=== PATIENT | female | born 1950 | race Two or more races ===

== ENCOUNTER 2021-08-22 14:07 | Emergency (ER) | payer OTHER ==
[~2021-08-22] VITALS: Ht 167.6 cm; Wt 62.1 kg
[2021-08-22] MEDS ORDERED: NORVASC2.5 M1 (14:38)
[2021-08-22] MEDS ORDERED: OMEPRAZOLE40 MG PO (20:08)
[2021-08-22] MEDS ORDERED: FLAGYL500MG PO (20:08)
[2021-08-22] MEDS ORDERED: CIPRO500 MG PO (20:08)
[2021-08-22] MEDS ORDERED: LEVSIN/SL0.125 MG SL (20:08)
== END 2021-08-22 20:54 | disposition home or self-care (01) ==
LOC: ER 14:07
DX: K57.32 Diverticulitis of large intestine without perforation or abscess without bleeding (principal); R10.32 Left lower quadrant pain; Z03.818 Encounter for observation for suspected exposure to other biological agents ruled out